=== PATIENT | female | born 1945 | race Caucasian/White ===

== ENCOUNTER 2017-05-07 07:56 | Inpatient (IN) | payer OTHER, MEDICARE ==
[~2017-05-07] VITALS: Ht 160 cm; Wt 84.4 kg
--- NOTE | ~2017-05-07 | HC ---
[facility] [place] [address] CONSULTATION Name: ABISAI KINGSTON Room #: 428-P ADM IN M.R.#: [id number] Admission: 05/07/17 Attend Phys: Adam Burns DO Discharge: Date of : 41 Report #: [id number] THIS REPORT FOR: //name// CC: Samy Burns TYPE OF REPORT: Pulmonary consultation. REFERRAL PHYSICIAN: Adam Burns D.O. REASON FOR REFERRAL: Hypoxia. HISTORY OF PRESENT ILLNESS: The patient is a 71-year-old white female who was brought to the Emergency Room complaining of left-sided chest pain and dyspnea. A pulmonary consultation was requested regarding hypoxia. The patient has history of Alzheimer's. She has atrial fibrillation. Although she is alert. She is somewhat incoherent. She states that she does not know why she was brought into the hospital. According to the ER, the patient became suddenly short of breath around 5:30 a.m. complaining of left-sided chest pain. She was found to be in AFib with rapid ventricular response. Her rhythm spontaneously converted to normal sinus rhythm while en route to the Emergency Room. The patient is on anticoagulation. Otherwise, she denies any dyspnea, chest pain, night sweats or chills. She states that she has smoked in the past but quit many years ago. She denies any history of lung disease. PAST MEDICAL HISTORY: Notable for the past history of tobacco use, CVA, hypertension, diabetes mellitus type 2, coronary artery disease, undergone multiple stent placements in the past, status post right renal artery stent, hyperlipidemia, history of cerebral artery aneurysm clipping, Alzheimer's, history of lumbar fracture with epidural hematoma and past history of right arm fracture in 2015. PAST SURGICAL HISTORY: Include open cholecystectomy, bladder suspension surgery, bilateral cataract surgery. ALLERGIES: To LATEX, reactions unspecified; IODINE, reactions unspecified; SULFA, reactions unknown; PENICILLIN causes hives and STEROIDS, reactions unspecified. FAMILY HISTORY: Remarkable for mother had cervical cancer. Multiple diabetes in the family. Father had coronary artery disease and diabetes. SOCIAL HISTORY: The patient is and has one child. She is retired from [employer] [employer] [facility] [employer] [facility] [place] [address] CONSULTATION Name: ABISAI KINGSTON Room #: 428-P [facility] IN [facility]#: [id number] Admission: 05/07/17 Attend Phys: Adam Burns DO Discharge: Date of : 43 Report #: [id number] the Green A. She has smoked in the past and quit in 2003. REVIEW OF SYSTEMS: As mentioned above. She is somewhat incoherent and states that it is 2016. Otherwise, a 10-point system review negative. PHYSICAL EXAMINATION: GENERAL: She is awake and alert, in no apparent distress. VITAL SIGNS: Temperature is 98.7 degrees Fahrenheit, pulse is 77, respiratory rate is 20, blood pressure is 154/75 mmHg and saturation is 98%. HEENT: Normocephalic and atraumatic. NECK: Supple, without lymphadenopathy or thyromegaly. CHEST: Breath sounds are fair due to poor effort. No obvious wheezes. Few scattered crackles in the bases. CARDIOVASCULAR: Normal S1 and S2. There is no murmur or gallop. There is no JVD. There is no carotid bruit. Pulses are 2+/4+ bilaterally. ABDOMEN: Soft and nontender. No organomegaly or masses felt. GENITOURINARY: Deferred. RECTAL: Deferred. EXTREMITIES: There is no edema, cyanosis or clubbing. LABORATORY DATA: D-dimer is normal at 0.47. Chest x-ray shows calcified granulomas seen in the right upper lobe, left lower lobe. Arterial blood gas on room air revealed pH 7.38, pCO2 of 43 and pO2 of 48. TSH is normal. EKG was unremarkable for any acute ischemic changes. Electrolytes are normal. Creatinine is normal. WBC 7600, hemoglobin is 11.4 and platelets are mildly reduced. Troponin is normal. IMPRESSION: 1. Acute onset of dyspnea, left-sided chest pain in this 71-year-old white female. She now has hypoxia with paO2 of 48 on room air. She is relatively asymptomatic. Etiology is unclear. With a history of Alzheimer's dementia, it is unclear if she has hypoventilation syndrome. Note that the pCO2 is mildly elevated at 43. Other considerations include a remote possibility of chronic obstructive lung disease with a past history of chronic obstructive pulmonary disease. Pulmonary embolus felt to be less likely as the patient is currently on anticoagulation, presumably for history of cerebrovascular accident. 2. History of cerebrovascular accident. 3. Coronary artery disease, status post multiple stents along with right renal artery stents. 4. Hypertension. 5. Diabetes mellitus type 2. 6. History of cerebral artery aneurysm clipping. 7. Alzheimer disease, likely early onset dementia. RECOMMENDATION: Agree with O2 for now to keep saturation 90%. We will recommend overnight oximetry study. Note, the patient also has been sedentary [facility] [address] [place] [address] CONSULTATION Name: ABISAI KINGSTON Room #: 428-P ADM IN M.R.#: [id number] Admission: 05/07/17 Attend Phys: Adam Burns, DO Discharge: Date of : 43 Report #: [id number] to realize the patient is already on anticoagulation but will be beneficial to rule out venothromboembolic disease. Recommend V/Q scan along with leg Doppler ultrasound. A bedside spirometry will be ordered. Eventually as an outpatient, PFT will be helpful. Thank you for this consultation. <ELECTRONICALLY SIGNED> By: Davonte Corral MD 05/09/17 1345 [id number] 0026 Davonte Corral MD /nt
--- NOTE | ~2017-05-07 | EKG ---
[address] [employer] [place] [address] ELECTROCARDIOGRAM REPORT Name: ABISAI KINGSTON Room #: 428-P ADM IN M.R.#: [id number] Admission: 05/07/17 Attend Phys: Adam Burns DO Discharge: Date of : 43 Report #: [id number] THIS REPORT FOR: //name// [facility] ED Test Date: 2017-05-07 Test Time: 08:04:20 Pat Name: ABISAI KINGSTON Department: Room: [facility] Gender: F Professor Of Violin: RIVER : 1945 Requested By: Rupali Parker Order Number: [id number] MD: Jeff Allan Measurements Intervals [place] Rate: 94 P: 51 NV: 136 QRS: 49 QRSD: 148 T: -16 QT: 374 QTc: 468 Interpretive Statements Sinus rhythm Right bundle branch block Baseline wander in lead(s) I Compared to ECG 06/02/2015 17:18:49 Lateral T wave abnormality is now present Electronically Signed On 05-08-2017 9:51:08 CHARGE WEIGHER by Jeff Allan [email or web address] <ELECTRONICALLY SIGNED> By: Jeff Allan MD, [facility] 05/08/17 0951 [phone] Jeff Allan MD, [facility] /EPI
--- NOTE | ~2017-05-07 | EKG ---
[address] [address] ELECTROCARDIOGRAM REPORT Name: ABISAI KINGSTON Room #: 428- ADM IN M.R.#: [id number] Admission: 05/07/17 Attend Phys: Adam Burns DO Discharge: Date of : 43 Report #: [id number] THIS REPORT FOR: //name// [facility] Test Date: 2017-05-10 Test Time: 06:22:23 Pat Name: ABISAI KINGSTON Department: Room: 428 Gender: F Tax Specialist: NASRA : 1945 Requested By: Stanislav Fenton Order Number: [id number] MD: Jeff Allan Measurements Intervals [place] Rate: 70 P: 41 IL: 147 QRS: 8 QRSD: 146 T: -15 QT: 438 QTc: 473 Interpretive Statements Sinus rhythm Right bundle branch block Compared to ECG 05/09/2017 02:58:55 Atrial fibrillation no longer present Electronically Signed On 05-10-2017 8:16:08 RAIL PROJECT ENGINEER by Jeff Allan [email or web address] <ELECTRONICALLY SIGNED> By: Jeff Allan MD, [facility] 05/10/1716 1 1 Jeff Allan MD, [facility] /EPI
--- NOTE | ~2017-05-07 | HC ---
[facility] [place] [address] CONSULTATION Name: ABISAI KINGSTON Room #: 428-P ADM IN M.R.#: [id number] Admission: 05/07/17 Attend Phys: Adam Burns DO Discharge: Date of : 43 Report #: [id number] THIS REPORT FOR: //name// CC: Samy Burns HISTORY OF PRESENT ILLNESS: The patient is a 71-year-old female known to myself. It looks like she has been in the hospital for a couple of days with hypoxemia and AFib, RVR. We are just consulted today. She has been fairly stable from my cardiac perspective and does have a history of paroxysmal AFib. She is on a multitude of home medications. She has moderate carotid disease from Dopplers done in our office. She is not completely clear historian tonight. She believes she came in with some shortness of breath, but does not remember a lot about that admission. States she still home with her . She converted to sinus rhythm and looks to be in sinus rhythm tonight. HOME MEDICATIONS: Lipitor 20, gabapentin, insulin, lidocaine, Trusopt, Lasix 40, Eliquis 5 b.i.d., potassium and lactobacillus. She had been on quinapril in the past. PAST MEDICAL HISTORY: Positive for drug-eluting stents to her LAD and RCA, right renal stent, hypertension, hypercholesterolemia, diabetes, moderate carotid disease, peripheral neuropathy, brain aneurysm clipping, bladder suspension and hysterectomy. Some progressive dementia and had suffered some trauma with rib and arm fractures in April of 2015. SOCIAL HISTORY: She is , prior smoker, some history of alcohol in the past, none currently. CURRENT MEDICATIONS: Here in the hospital are Lasix, potassium, latanoprost ophthalmologic, edoxaban 60 mg that is Savaysa for anticoagulation, amlodipine 10 and metoprolol IV was given once. PHYSICAL EXAMINATION: GENERAL: She appears to be mildly demented tonight, but she denies any chest pain. She is on 2 liters of oxygen. She is in sinus rhythm. VITAL SIGNS: Pulse in the 70s and blood pressure 140/84. HEENT: Eyes reveal xanthelasmas. Pharynx is clear. NECK: Shows preserved upstrokes without JVD. There is a faint left-sided bruit. LUNGS: Show prolonged expiratory phase. CARDIAC: Regular rate and rhythm. S1 and S2 distant. ABDOMEN: Soft. No HSM or abdominal bruit. EXTREMITIES: Reveal trace of edema. Distal pulses are intact. MUSCULOSKELETAL: Generalized arthritic changes. NEUROLOGICAL: Intact. No focal findings. I did not ambulate her. [facility] [address] [facility] [place] [address] CONSULTATION Name: ABISAI KINGSTON Room #: 428-P ADM IN M.R.#: [id number] Admission: 05/07/17 Attend Phys: Adam Burns DO Discharge: Date of : 43 Report #: [id number] ASSESSMENT: 1. Hypoxemia. 2. Paroxysmal atrial fibrillation. 3. Coronary artery disease with history of prior left anterior descending and right coronary artery stents, stable. 4. Wofys-hc-twaleor systolic failure. 5. Frailness. 6. Early dementia. 7. Diabetes. 8. Hypercholesterolemia. RECOMMENDATIONS AND PLAN: An echo was obtained. LV function is normal, so must be a component of diastolic dysfunction here, not acute systolic. I suspect mild valvular insufficiency and pulmonary hypertension with a PA pressure of 55. I would continue the diuretic. She appears to be hemodynamically stable. There is no rate controlling medications here. We will presumably add Toprol, looks like heart rate and blood pressure would handle this. We will initiate 25. We would continue with the Lasix. No BNP. We will check a BNP in the morning and it appears there was a V/Q scan and that was low probability. Chest x-ray 2 days ago showed no acute pulmonary process appear to be relatively stable from a hemodynamic perspective. Obviously, some rehab may be an order here and some strengthening. EKG in the morning. We will follow with you. ADDENDUM ASSESSMENT: Paroxysmal atrial fibrillation. LABORATORY DATA: Sodium 139, potassium 4.2, creatinine 1.1 and glucose 138. H and H 12.3 and 38.7, white count 8.5 and platelets 135. By: 51 39 Stanislav Fenton MD, FACC /nt
--- NOTE | ~2017-05-07 | 2DMMODE ---
[facility] [address] [place] [address] 2 D/M-MODE ECHOCARDIOGRAM Name: ABISAI KINGSTON Room #: 428-P ADM IN M.R.#: [id number] Admission: 05/07/17 Attend Phys: Adam Burns, Discharge: Date of : 43 Date of Service: 05/09/17 1206 Report #: [id number] THIS REPORT FOR: //name// APPROVED REPORT Study performed: 05/09/2017 11:27:17 EXAM: Comprehensive 2D, Doppler, and color-flow Echocardiogram Patient Location: Bedside Room #: 428 Status: routine BSA: 1.88 BP: 140/84 mmHg Other Information Study Quality: Technically Limited Technically limited study due to lung disease. Indications Diabetes CAD Chest Pain Hypertension/HDD Hx afib 2D Dimensions RVDd: 25.12 mm LVEF(%): 57.57 (>50%) IVSd: 11.36 (7-11mm) LVOT Diam: 18.48 (18-24mm) LVDd: 39.95 mm PWd: 12.12 (7-11mm) LVDs: 28.02 (25-40mm) Aortic Root: 30.56 mm IVC: 10.00 mm Nava's LVEF: 57.57 % Volumes Left Atrial Volume (Systole) Single Plane 4CH: 23.49 mL Single Plane 2CH: 50.70 mL LA ESV Index: 19.00 mL/m2 Aortic Valve AoV Peak Daniel.: 1.15 m/s AO Peak Gr.: 5.31 mmHg LVOT Max P.35 mmHg LVOT Max V: 1.04 m/s [facility] [address] [address] 2 D/M-MODE ECHOCARDIOGRAM Name: ABISAI KINGSTON Room #: 428-[facility] IN [facility]#: [id number] Admission: 05/07/17 Attend Phys: Adam Burns, Discharge: Date of : 43 Date of Service: 05/09/17 1206 Report #: [id number] Vmax: 2.43 cm2 Mitral Valve E/A Ratio: 0.7 MV Decel. Time: 263.00 ms MV E Max Daniel.: 0.87 m/s MV A Daniel.: 1.18 m/s MV PHT: 76.27 ms IVRT: 114.19 ms Pulmonary Vein P Vein S: 0.36 m/s P Vein A: 0.17 m/s P Vein D: 0.26 m/s P Vein A Dur.: 96.9 msec P Vein S/D Ratio: 1.38 Tricuspid Valve TR Peak Daniel.: 3.50 m/s RAP Estimate: 5.00 mmHg TR Peak Gr.: 49.13 mmHg PA Pressure: 55.00 mmHg Left Ventricle The left ventricle is normal size. There is normal left ventricular wall thickness. The left ventricular systolic function is normal. The left ventricular ejection fraction is within the normal range. LVEF is 60-65%. Mild diastolic dysfunction is present (impaired relaxation pattern). Right Ventricle The right ventricle is normal size. The right ventricular systolic function is normal. Atria Left atrium is mildly dilated. The right atrium size is normal. Aortic Valve The aortic valve is not well visualized, calcified Trace to mild aortic regurgitation. There is no aortic valvular stenosis. Mitral Valve Mild mitral annular calcification. There is no mitral valve regurgitation noted. No evidence of mitral valve stenosis. Tricuspid Valve The tricuspid valve is normal in structure. Mild tricuspid regurgitation. PAP is estimated at [address] [address] 2 D/M-MODE ECHOCARDIOGRAM Name: GENOVEVA KINGSTON Room #: 428-P [facility] IN M.R.#: [id number] Admission: 05/07/17 Attend Phys: Adam Burns, Discharge: Date of : 43 Date of Service: 05/09/17 1206 Report #: [id number] Pulmonic Valve Pulmonic valve is not well visualized. Great Vessels The aortic root is normal in size. Ascending aorta is not well visualized. IVC is normal in size and collapses >50% with inspiration. Pericardium There is no pericardial effusion. <Conclusion> The left ventricular systolic function is normal. LVEF is 60-65%. Hypokinesis involving the base of the inferior wall Mild diastolic dysfunction Left atrium is mildly dilated. The aortic valve is not well visualized, calcified. Mild aortic regurgitation, no stenosis. Mild mitral annular calcification. No mitral valve regurgitation Pulmonary artery pressure of 55mmHg No pericardial effusion <ELECTRONICALLY SIGNED> By: Jeff Allan MD, FACC 05/09/171205 05 05 Jeff Allan MD, FACC /INF
--- NOTE | ~2017-05-07 | EKG ---
[address] [address] ELECTROCARDIOGRAM REPORT Name: ABISAI KINGSTON Room #: 428-P ADM IN M.R.#: [id number] Admission: 05/07/17 Attend Phys: Adam Burns DO Discharge: Date of : 43 Report #: [id number] THIS REPORT FOR: //name// [facility] Test Date: 2017-05-09 Test Time: 02:58:55 Pat Name: ABISAI KINGSTON Department: Room: 428 P Gender: F Ground Systems Engineer: bassam : 1945 Requested By: Neris Aviles Order Number: [id number] MD: Jon Portillo Measurements Intervals [place] Rate: 149 P: IN: QRS: 72 QRSD: 133 T: -25 QT: 323 QTc: 509 Interpretive Statements Atrial fibrillation Right bundle branch block Compared to ECG 05/07/2017 08:04:20 Sinus rhythm no longer present Electronically Signed On 05-09-2017 7:37:14 HYDROELECTRIC MACHINERY MECHANIC by Jon Portillo [email or web address] <ELECTRONICALLY SIGNED> By: Jon Portillo MD 05/09/17 0737 7 Jon Portillo MD /JON
--- NOTE | ~2017-05-07 | PFR/MVV ---
[facility] [place] [address] PULMONARY FUNCTION MVV/REPORT Name: THEEABISAI Room #: 428-P [facility] IN [facility].#: [id number] Admission: 05/07/17 Attend Phys: Adam Burns DO Discharge: 05/11/17 Date of : 43 Report #: [id number] THIS REPORT FOR: //name// >> SPIROMETRY: (BTPS) Height: in cm Weight: lbs kg Exam Date: PRE-RX POST-RX PRED BEST %PRED BEST %PRED %CHG FVC LITERS . . . . . . FEV1 LITERS . . . . . . FEV1/FVC % . . . . . . GKL33-36% L/Sec . . . . . . PEF L/SEC . . . . . . FEF50/FIF50 UNITLESS . . . . . . MVV L/Min . . . f 1/Min . . . >> LUNG VOLUMES: (BTPS) PRE-RX POST-RX PRED AVG %PRED AVG %PRED %CHG VC Liters . . . . . . TLC Liters . . . . . . RV Liters . . . . . . RV/TLC % . . . . . . FRC PL Liters . . . . . . FRC N2 Liters . . . . . . ERV Liters . . . . . . IC Liters . . . . . . >> DIFFUSION: DLCO ml/Min/mmHg . . . . . . DL Julio ml/Min/mmHg . . . . . . DLCO/VA ml/Min/mmHg . . . . . . VA Liters . . . . . . COMMENTS: COMMENTS: >> RESISTANCE: [facility] [address] [place] [address] PULMONARY FUNCTION MVV/REPORT Name: ABISAI KINGSTON Room #: 428-P [facility] IN [place].#: [id number] Admission: 05/07/17 Attend Phys: Adam Burns DO Discharge: 05/11/17 Date of : 43 Report #: [id number] PRE-RX PRED AVG %PRED Raw Total cmH20/L/Sec . . . Raw Insp cmH20/L/Sec . . . Raw Exp cmH20/L/Sec . . . Raw cmH20/L/Sec . . . Gaw L/Sec/cmH20 . . . sRaw cmH20 Sec . . . sGaw l/cmH20 Sec . . . Vtq Liters . . . # = OUTSIDE 95% CONFIDENCE INTERVAL CALIBRATION: PRED: 3.00 ACTUAL: EXP 3.01 INSP 3.02 [facility]-05 N-1804-4 >> INTERPRETATION/IMPRESSION: CC: Samy Burns PRE-SPIROMETRY AND POST-SPIROMETRY. IMPRESSION: Pre-spirometry suggests low FVC with moderate obstruction. There is not a significant change post-bronchodilator, but there is a 7% to 8% change in FVC and FEV1 respectively. Clinical correlation recommended. <ELECTRONICALLY SIGNED> By: Donya Mosquera MD 05/14/17 1558 Donya Mosquera MD /nt
[~2017-05-07 07:56] MED LIST: ACCUPRIL40 MG PO; ACETAMINOPHEN-1 EAC1 PO; ACIDOPHILUS1 EAC2 PO; AMLODIPINE BESYL5 MG PO; ANTACID325 MG PO; ASPIRIN325; AZOPT OPHTH1 %/10 M1 OP; BISACODYL SUPP10 MG RECTAL; BYSTOLIC 5 MG5 M1 PO; BYSTOLIC20 MG; CALCIUM 500 +1 EAC5 PO; CALCIUM OYSTER500 MG; CENTRUM SILVER1 EAC1; CIPRO250 M1 PO; COLACE100 MG PO; CYCLOBENZAPRINE5 MG PO; ELIQUIS5 MG PO; FENOFIBRATE160 MG PO; FISHOIL; FOLIC ACID 40400 MCG; HUMULINR100; HYDROCODONE-AP1 EAC6 PO; KLOR-CON 1010 MEQ PO; LASIX 40 MG TAB40 M2 PO; LIDODERM 5%1 PATC1 TOP; LIDODERM 5%1 PATC1 TRANSDERM; LIPITOR 20 MG T20 M1 PO; MILK OF MA2400 MG/10 PO; MIRALAX17 GM PO; MOBIC7.5 MG PO; NAPROSYN500 MG PO; NEURONTIN 300300 M1 PO; NEURONTIN600 MG; NOVOLIN N100 UNIT/3; NOVOLOG100 UNIT/1; NYSTATIN15 G1 TOP; PERCOCET 7.5-31 EACH PO; PERCOCET PO; PREDNISONE 10 M10 MG; PREDNISONE 20 M20 MG PO; PRILOSEC20 MG PO; QUINU10 PD PO; REMERON15 MG PO; SENNA8.6 MG PO; SIMVASTATIN40 MG PO; SIMVASTATIN80 MG; SODIUM BICARBO650 M3 PO; TIMOLOL GL0.5 %/5 M1 OPHTHALMIC; TOPROL XL25 MG; TRAVATAN Z2.5 ML OPHTHALMIC; TRUSOPT OCUMETE10 ML OPHTHALMIC; TYLENOL325 MG PO; VITAMINC500 PO; VOLTAREN GEL 1100 G2 TOP; XALATAN2.5 ML OPHTHALMIC; ZANTAC 150MG T150 MG PO
[2017-05-07 07:57] VITALS: BP 160/64
[2017-05-07 08:33] LABS: HEMATOCRIT 35.8 % (37.0-47.0); HEMOGLOBIN 11.4 gm/dL (12.0-15.0); MCH 28.3 pg (26.0-34.0); MCHC 31.8 g/dL (28.0-37.0); MCV 88.7 fL (80.0-100.0); PLATELET COUNT 117 thou/uL (150-400); RBC 4.03 mil/uL (4.20-5.00); RDW 16.1 % (10.5-14.5); WBC 7.6 thou/uL (4.0-11.0)
[2017-05-07 08:40] LABS: MANUAL DIFF YES
[2017-05-07 08:45] LABS: ANION GAP 10 mmol/L (7-16); BUN 16 mg/dL (7-18); CALCIUM 10.1 mg/dL (8.5-10.1); CHLORIDE 100 mmol/L (98-107); CO2 26 mmol/L (21-32); CREATININE 0.9 mg/dL (0.6-1.0); GLUCOSE 181 mg/dL (74-106); POTASSIUM 4.4 mmol/L (3.5-5.1); SODIUM 136 mmol/L (136-145)
[2017-05-07 08:54] LABS: TROPONIN-I < 0.04 ng/mL (<0.06)
[2017-05-07 09:05] LABS: ABSOLUTE NEUTROPHILS 4.2 thou/uL (1.4-8.2); ANISOCYTOSIS 1+; TOTAL CELL COUNT 100
[2017-05-07 11:45] LABS: ABG SAMPLE TYPE ARTERIAL; BE(vivo) 0.3 mmol/L (-2 to +3); HCO3 25.5 mmol/L (22.0-26.0); LACTATE 1.85 mmol/L (0.5-2.0); O2(CT) 13.8 mL/dL (15.0-23.0); O2Hb 83.4 % (92.0-98.0); PCO2 43.4 mmHg (35.0-45.0); PO2 48.9 mmHg (80.0-100.0); STICK SITE R.BRACHIAL; pH 7.387 (7.360-7.450); tCO2 26.8 mmol/L (24.0-30.0)
[2017-05-07 12:35] VITALS: BP 140/67
[2017-05-07 13:36] VITALS: BP 119/67
[2017-05-07 21:00] VITALS: BP 154/77
[2017-05-08 05:30] VITALS: BP 162/79
[2017-05-08 06:01] LABS: HEMATOCRIT 36.2 % (37.0-47.0); HEMOGLOBIN 11.4 gm/dL (12.0-15.0); MCHC 31.4 g/dL (28.0-37.0); MCV 89.2 fL (80.0-100.0); PLATELET COUNT 118 thou/uL (150-400); RBC 4.06 mil/uL (4.20-5.00); RDW 16.3 % (10.5-14.5); WBC 6.2 thou/uL (4.0-11.0)
[2017-05-08 06:14] LABS: MANUAL DIFF YES
[2017-05-08 06:38] LABS: TSH 0.831 uIU/mL (0.358-3.740)
[2017-05-08 07:50] VITALS: BP 154/75
[2017-05-08 10:46] LABS: ANISOCYTOSIS 1+; ATYPICAL LYMPHS 3 %; TOTAL CELL COUNT 100
[2017-05-08 11:09] LABS: CALCIUM 9.6 mg/dL (8.5-10.1); CREATININE 0.8 mg/dL (0.6-1.0); MAGNESIUM 1.7 mg/dL (1.8-2.4); POTASSIUM 4.1 mmol/L (3.5-5.1)
[2017-05-08 15:05] VITALS: BP 156/78
[2017-05-08 19:45] VITALS: BP 140/67
[2017-05-09 04:23] LABS: HEMATOCRIT 38.7 % (37.0-47.0); HEMOGLOBIN 12.3 gm/dL (12.0-15.0); MCH 28.5 pg (26.0-34.0); MCHC 31.7 g/dL (28.0-37.0); MCV 89.8 fL (80.0-100.0); PLATELET COUNT 135 thou/uL (150-400); RBC 4.31 mil/uL (4.20-5.00); RDW 16.1 % (10.5-14.5); WBC 8.5 thou/uL (4.0-11.0)
[2017-05-09 04:34] LABS: CALCIUM 9.4 mg/dL (8.5-10.1); CREATININE 1.1 mg/dL (0.6-1.0); MAGNESIUM 1.6 mg/dL (1.8-2.4); POTASSIUM 4.2 mmol/L (3.5-5.1)
[2017-05-09 04:38] LABS: MANUAL DIFF YES
[2017-05-09 05:43] LABS: ANISOCYTOSIS SLIGHT; LARGE PLATELETS RARE; TOTAL CELL COUNT 100
[2017-05-09 09:41] VITALS: BP 140/84
[2017-05-09] MEDS ORDERED: AMLODIPINE BESY10 MG PO (14:56)
[2017-05-09 16:47] VITALS: BP 151/68
[2017-05-09 20:30] VITALS: BP 137/58
[2017-05-10 03:19] VITALS: BP 153/62
[2017-05-10 07:28] VITALS: BP 147/61
[2017-05-10 16:00] VITALS: BP 116/59
[2017-05-10 17:29] LABS: URINE BILIRUBIN NEGATIVE (Negative); URINE BLOOD NEGATIVE (Negative); URINE COLOR YELLOW; URINE GLUCOSE-RANDOM* NEGATIVE (Negative); URINE KETONES NEGATIVE (Negative); URINE PROTEIN (DIPSTICK) NEGATIVE (Negative); URINE SPECIFIC GRAVITY <= 1.005 (1.003-1.035); URINE UROBILINOGEN 0.2 E.U./dl (0.2-1.0)
[2017-05-10 17:38] LABS: URINE LEUKOCYTES-REFLEX 1+ (Negative)
[2017-05-10 17:44] LABS: CASTS None Seen /LPF (None Seen); CRYSTALS None Seen /LPF (None Seen); SQUAMOUS None Seen /LPF (0-3); URINE RBC None Seen /HPF (0-2); URINE WBC-REFLEX 0-5 Rare /HPF (0-5)
[2017-05-10 20:00] VITALS: BP 129/60
[2017-05-11 00:13] VITALS: BP 142/56
[2017-05-11 05:07] VITALS: BP 141/63
[2017-05-11 05:08] LABS: GLYCOHEMOGLOBIN (HGB A1C) 7.2 % (4.8-5.6)
[2017-05-11 09:23] VITALS: BP 136/53
[2017-05-11] MEDS ORDERED: METOPROLOL SUCC25 M1 PO (10:02)
[2017-05-11 10:20] VITALS: BP 136/53
== END 2017-05-11 15:00 | disposition home health service (06) | DRG 291 ==
LOC: ER 07:56 → 4E 11:55 → EROBS 11:55 → 4E 13:22 → ENTRNSPT 05-11 14:48 → EDTRNSPTSTS 05-11 14:51 → 4E 05-11 15:00
PROVIDERS: Emergency Medicine; Hospitalist; Internal Medicine Geriatric Medicine; Registered Nurse
DX: I50.23 Acute on chronic systolic (congestive) heart failure (principal); J96.00 Acute respiratory failure, unspecified whether with hypoxia or hypercapnia; G30.0 Alzheimer's disease with early onset; E53.8 Deficiency of other specified B group vitamins; I11.0 Hypertensive heart disease with heart failure; I48.0 Paroxysmal atrial fibrillation; F02.80 Dementia in other diseases classified elsewhere, unspecified severity, without behavioral disturbance, psychotic disturbance, mood disturbance, and anxiety; I25.10 Atherosclerotic heart disease of native coronary artery without angina pectoris; E78.5 Hyperlipidemia, unspecified; E11.42 Type 2 diabetes mellitus with diabetic polyneuropathy; Z87.891 Personal history of nicotine dependence; Z90.710 Acquired absence of both cervix and uterus; Z87.81 Personal history of (healed) traumatic fracture; Z86.73 Personal history of transient ischemic attack (TIA), and cerebral infarction without residual deficits; Z98.42 Cataract extraction status, left eye; Z98.41 Cataract extraction status, right eye; Z95.5 Presence of coronary angioplasty implant and graft; Z95.820 Peripheral vascular angioplasty status with implants and grafts; Z88.0 Allergy status to penicillin; Z88.2 Allergy status to sulfonamides; Z88.8 Allergy status to other drugs, medicaments and biological substances; Z91.041 Radiographic dye allergy status; Z91.040 Latex allergy status; Z79.01 Long term (current) use of anticoagulants; Z79.4 Long term (current) use of insulin; Z79.899 Other long term (current) drug therapy
CPT/HCPCS: 10183

== ENCOUNTER 2017-11-24 01:05 | Inpatient (IN) | payer OTHER, MEDICARE ==
[~2017-11-24] VITALS: Ht 172.7 cm; Wt 86.8 kg
[2017-11-24] VITALS (53 sets, daily range): BP systolic 56–144; BP diastolic 42–125
--- NOTE | ~2017-11-24 | 2DMMODE ---
[facility] [address] [place] [address] 2 D/M-MODE ECHOCARDIOGRAM Name: ABISAI KINGSTON Room #: 243-P [facility] IN .R.#: [id number] Admission: 11/24/17 Attend Phys: Hira Mujica, Discharge: Date of : 41 Date of Service: 11/24/17 [facility] Report #: [id number] THIS REPORT FOR: //name// APPROVED REPORT Study performed: 11/24/2017 09:22:02 EXAM: Comprehensive 2D, Doppler, and color-flow Echocardiogram Patient Location: Bedside Room #: 351 Status: routine BSA: 2.03 HR: 53 bpm BP: 128/75 mmHg Rhythm: NSR Other Information Study Quality: Adequate/no patient cooperation. Indications Increased short of breath, pulmonary edema. Hx: CAD, stent, COPD, Afib 2D Dimensions RVDd: 37.43 mm LVEF(%): 64.21 (>50%) IVSd: 10.80 (7-11mm) LVOT Diam: 19.70 (18-24mm) LVDd: 48.00 mm PWd: 7.51 (7-11mm) LVDs: 31.19 (25-40mm) Aortic Root: 31.19 mm Nava's LVEF: 64.21 % Volumes Left Atrial Volume (Systole) Single Plane 4CH: 58.42 mL Single Plane 2CH: 93.16 mL LA ESV Index: 39.00 mL/m2 Aortic Valve AoV Peak Daniel.: 1.45 m/s AO Peak Gr.: 8.45 mmHg LVOT Max P.16 mmHg LVOT Max V: 0.89 m/s OZ Vmax: 1.86 cm2 Mitral Valve [facility] [address] [address] 2 D/M-MODE [facility]OCARDIOGRAM [facility]: [facility] #: [address] [place] [address] IN ..#: [id number] Admission: 11/24/17 Attend Phys: Hira Mujica, Discharge: Date of : 41 Date of Service: 11/24/17 [facility] Report #: [id number] E/A Ratio: 2.8 MV Decel. Time: 221.04 ms MV E Max Daniel.: 1.31 m/s MV A Daniel.: 0.47 m/s MV PHT: 64.10 ms Pulmonary Valve PV Peak Daniel.: 0.96 m/s PV Peak Gr.: 3.66 mmHg Pulmonary Vein P Vein S: 0.41 m/s P Vein A: 0.22 m/s P Vein D: 0.77 m/s P Vein A Dur.: 133.8 msec P Vein S/D Ratio: 0.53 Tricuspid Valve TR Peak Daniel.: 3.61 m/s RAP Estimate: 10.00 mmHg TR Peak Gr.: 52.00 mmHg PA Pressure: 62.00 mmHg Left Ventricle The left ventricle is normal size. There is normal left ventricular wall thickness. Left ventricular systolic function is normal. Hypokinesis involving base of inferior wall. LVEF is 60%. Moderate diastolic dysfunction is present (pseudonormal filling). Right Ventricle The right ventricle is normal size. The right ventricular systolic function is normal. Atria Left atrium is mildly dilated. Right atrium is at the upper limits of normal. Aortic Valve Aortic valve is moderately calcified. Mild aortic regurgitation. There is no aortic valvular stenosis. Mitral Valve Moderate mitral annular calcification; mild leaflet thickening. Mild mitral regurgitation. No evidence of mitral valve stenosis. Tricuspid Valve The tricuspid valve is normal in structure. Mild tricuspid regurgitation. Estimated PAP 60-65mmHg. [address] [address] 2 D/M-MODE ECHOCARDIOGRAM Name: ABISAI KINGSTON Room #: 243-P [facility] IN [facility]#: [id number] Admission: 11/24/17 Attend Phys: Hira Mujica, Discharge: Date of : 41 Date of Service: 11/24/17 [facility] Report #: [id number] Pulmonic Valve The pulmonary valve is normal in structure. Trace pulmonic regurgitation. Great Vessels The aortic root is normal in size. Ascending aorta is not well visualized. IVC is dilated and collapses <50% with inspiration. Pericardium There is no pericardial effusion. Right pleural effusion noted. <Conclusion> Left ventricular systolic function is normal. Hypokinesis involving base of inferior wall. LVEF is 60%. Moderate diastolic dysfunction Both atria are dilated. Aortic valve is moderately calcified. Mild aortic regurgitation, no stenosis. Moderate mitral annular calcification; mild leaflet thickening. Mild mitral regurgitation. Mild tricuspid regurgitation. Estimated pulmonary artery pressure of 60-65mmHg. There is no pericardial effusion. Similar to 04/2017 <ELECTRONICALLY SIGNED> By: Jeff Allan MD, FACC 11/24/17 1037 1037 1037 Jeff Allan MD, FACC /INF
--- NOTE | ~2017-11-24 | HC ---
[facility] [place] [address] CONSULTATION Name: ABISAI KINGSTON Room #: 449-I ADM IN M.R.#: [id number] Admission: 11/24/17 Attend Phys: Hira Mujica MD Discharge: Date of : 41 Report #: [id number] THIS REPORT FOR: //name// CC: Stanislav Mujica MD REQUESTING PHYSICIAN: Dr. Mujica. CHIEF COMPLAINT: Sbcwk-di-ggognnh combined respiratory failure. HISTORY OF PRESENT ILLNESS: The patient is a 72-year-old female who had had multiple admissions over the last year, per her 's report, for different complexities. The patient has been admitted to [place] on 11/24/2017 at which time she had been found to have severe anemia to a hemoglobin of 5, suspected to have GI bleed, but not a good candidate for EGD or colonoscopy secondary to respiratory failure. The patient has subsequently had a treatment for this including the possibility of pulmonary edema related to this. She has had significant improvement in her lower extremity edema since admission, but has subsequently developed delirium. She is requiring significant oxygen via nasal cannula as she is currently a DNR status. The patient's has been concerned about her progressive dementia of Alzheimer's type. She has had severe progression over the last 3 years and over the last 3 months, especially the patient has at times been very aggressive with her caregiver. He is at this point very concerned about her quality of life and is concerned that further treatment may although increase her life expectancy, decrease her quality in long-term. He is interested in palliative care as an option going forward. PAST MEDICAL HISTORY: Hypertension; moderate diastolic CHF; CAD; type 2 diabetes; paroxysmal atrial fibrillation; anemia; history of cerebral aneurysm, status post clipping; history of vertebral fractures, multiple, approximately years ago had 5 vertebral fractures and then 2 more approximately 2-1/2 years ago; Alzheimer's dementia; peripheral neuropathy secondary to diabetes. SOCIAL HISTORY: Lives at home with her , has 1 daughter. The patient had had significant decline in her ADLs over the last year, was walking with a walker; however, prior to this refused to continue to do therapy approximately 1 year ago according to . PAST SURGICAL HISTORY: Aneurysm clip as previously noted, renal stent. FAMILY HISTORY: Noncontributory. REVIEW OF SYSTEMS: Difficult to obtain at this time completely, although she is more alert than she has been in the last few days. The patient is able to report to me that she does have lower extremity pain. She denies any chest [address] [address] CONSULTATION Name: ABISAI KINGSTON Room #: 449-I ADM IN M.R.#: [id number] Admission: 11/24/17 Attend Phys: Hira Mujica MD Discharge: Date of : 41 Report #: [id number] pain, denies out of the ordinary shortness of breath for her, although she is obviously dyspneic at certain times. The patient denies any abdominal pain, nausea. She is interested in having p.o. intake. PHYSICAL EXAMINATION: VITAL SIGNS: Temperature 36.8, pulse 87, respirations 18, blood pressure 136/98, 94% on nasal cannula. GENERAL: The patient is more alert. Her attention level is poor. She is in no acute distress. HEENT: Extraocular muscles appear to be intact. No scleral icterus seen. CARDIOVASCULAR: Regular rate and rhythm without murmur. PULMONARY: Diffuse rales noted, only able to listen to upper lobes. ABDOMEN: Soft, nontender to palpation, x 4, positive bowel sounds noted in all 4 quadrants. EXTREMITIES: There is edema in upper extremities bilaterally, but none in lower extremities. LABORATORY DATA: These included most recently O2 48 this morning, CO2 45. She did have a white blood cell count of 20.1. Hemoglobin 8.0, and 5.0 on admit. Lactate 2.4. ASSESSMENT AND PLAN: 1. Gwdvw-je-mhykbyw combined respiratory failure and at this time, the patient's and next of kin is interested in palliative care options and he would like to wean oxygen down. He is of the impression that her quality of life is suffering overall. He would like to see how she does on getting back to her baseline. He does understand that she may have improvement with continued treatment, but he is concerned that her improvement back to baseline may be negligible and that she may have continued therapy need afterwards and he does not feel that she wants to go back to a long-term care for any kind of rehabilitation at this time. He feels that he will be unable to care for her otherwise and that she would not be interested in this. He is interested in pursuing anything that involves comfort at this time, although he would like to continue IV fluids for the next day until we assess how she is going to do overnight. I did discuss the possibility of weaning down 2 liters every 30 minutes or so until we reach a comfort level and then administering medications to assist. We will continue with fentanyl for the time being. Given her delirium, we will hold off on benzodiazepines, but they will be an option for anxiety in the future. We will readdress with patient and family tomorrow. I did discuss this for approximately one hour on voluntary discussion of advanced directives today, did confirm DNR status and willingness to continue that at this time. 2. Delirium. I do believe that the patient has been , although she does have some improvement. She does have preexisting dementia, which is contributing to her overall condition. We did discuss this extensively today and patient's is wishing to pursue a comfort care option at this time. [facility] [address] [place] [address] CONSULTATION Name: ABISAI KINGSTON Room #: 449-I ADM IN [facility]#: [id number] Admission: 11/24/17 Attend Phys: Hira Mujica MD Discharge: Date of : 41 Report #: [id number] 3. Dementia, moderate to severe at this time with agitation. Again, as above. 4. Possible pneumonia. I appreciate pulmonary recs. I have not discontinued any antibiotics or breathing treatments at this time, although she has had much difficulty with breathing treatments most recently in tolerating them. She has also had difficulty tolerating nasal cannula. Again, we will wean this at this time and see how patient does. We will readdress with family tomorrow. We will continue to follow along with this patient. Thank you very much for the consult. <ELECTRONICALLY SIGNED> By: Liam Barnard DO 11/29/17 [id number] Liam Barnard DO /santos
--- NOTE | ~2017-11-24 | EKG ---
[address] [address] ELECTROCARDIOGRAM REPORT Name: ABISAI KINGSTON Room #: 351-P ADM IN M.R.#: [id number] Admission: 11/24/17 Attend Phys: Hira Mujica MD Discharge: Date of : 41 Report #: [id number] THIS REPORT FOR: //name// [facility] ED Test Date: 2017-11-24 Test Time: 01:24:51 Pat Name: ABISAI KINGSTON Department: Room: Gender: F Program Checker: thesingj : 1945 Requested By: Jaki Alcantara Order Number: [id number] MD: Jeff Allan Measurements Intervals Harleigh Rate: 59 P: 61 DC: 145 QRS: 54 QRSD: 166 T: -21 QT: 485 QTc: 481 Interpretive Statements Sinus bradycardia Right bundle branch block Borderline ST depression, lateral leads Compared to ECG 05/10/2017 06:22:23 ST (T wave) deviation now present Electronically Signed On 11-24-2017 8:39:05 CDT by Jeff Allan [email or web address] <ELECTRONICALLY SIGNED> By: Jeff Allan MD, [facility] 11/24/17 0839 [id number] [id number] Jeff Allan MD, [facility] /EPI
--- NOTE | ~2017-11-24 | HC ---
[facility] [place] [address] CONSULTATION Name: ABISAI KINGSTON Room #: 243-P ADM IN M.R.#: [id number] Admission: 11/24/17 Attend Phys: Hira Mujica MD Discharge: Date of : 41 Report #: [id number] THIS REPORT FOR: //name// CC: Stanislav Jossy Samy Mujica DATE OF SERVICE: 11/24/2017 PULMONARY CONSULTATION REFERRING PHYSICIAN: Hira Mujica MD PRIMARY CARE PHYSICIAN: Samy Khanna DO REASON FOR REFERRAL: Acute on chronic respiratory failure. HISTORY OF PRESENT ILLNESS: The patient is a 72-year-old white female who presented to the Emergency Room with pain below her knees. She was found to be anemic. Her hemoglobin was 5. She was admitted to telemetry from the Emergency Room. Overnight, she became more hypoxic. A pulmonary consultation was requested. She is currently on noninvasive positive pressure ventilation. She is intermittently coherent. She is tolerating the BiPAP at this time. History is limited given respiratory distress. The patient is normally on 6 liters of O2 at home. She has COPD, which is moderate with an FEV1 of 1.1 liters, 55% predicted. Otherwise, as mentioned above, history is somewhat limited as the patient is currently on BiPAP and also somewhat confused. PAST MEDICAL HISTORY: Notable for dementia, cerebral aneurysm, CVA, COPD, hypertension, atrial fibrillation, on Savaysa, peripheral artery disease with a prior right renal artery stent placement, Alzheimer disease. PAST SURGICAL HISTORY: Notable for open cholecystectomy, repair of the right arm fracture, bladder suspension surgery, bilateral cataract surgery. ALLERGIES: LATEX, WHICH CAUSES SEVERE LOCAL REACTION; SULFA, REACTION NOT SPECIFIED, PENICILLIN CAUSES HIVES. HOME MEDICATIONS: Include sodium bicarbonate, Trusopt, Xalatan eyedrops, insulin supplements, amlodipine, Lasix, Savaysa 60 mg p.o. b.i.d., Aricept, Glucophage, Neurontin, vitamin C, Lipitor, Klor-Con. [facility] [address] [place] [address] CONSULTATION Name: ABISAI KINGSTON Room #: [facility].#: [id number] Admission: 11/24/17 Attend Phys: Hira Mujica MD Discharge: Date of : 41 Report #: [id number] FAMILY HISTORY: Noncontributory. SOCIAL HISTORY: The patient has smoked, but quit several years ago. She denies any alcohol use. REVIEW OF SYSTEMS: As mentioned above, otherwise is limited. PHYSICAL EXAMINATION: GENERAL: She is awake, in no distress, tolerating BiPAP. VITAL SIGNS: Temperature is 97 degrees Fahrenheit, pulse is 60, respiratory rate is 24, blood pressure is 120/50 mmHg, saturation 91%. HEENT: Normocephalic, atraumatic. NECK: Supple, without lymphadenopathy or thyromegaly. CHEST: Breath sounds are fair anteriorly without any obvious rales or wheezes. CARDIOVASCULAR: Normal S1, S2. No murmurs or gallop. There is no JVD. There is no carotid bruit. Pulses are 2+/4+ bilaterally. ABDOMEN: Soft, nontender, no organomegaly or masses felt. GENITOURINARY: Deferred. RECTAL: Deferred. EXTREMITIES: There is no edema, cyanosis or clubbing. LABORATORY DATA: Portable chest x-ray on admission revealed mild bilateral patchy interstitial infiltrates. Right diaphragm is mildly elevated. There is a calcified granuloma previously noted in the right upper lobe. Sodium 122, potassium 4.7, chloride 89, CO2 of 28, BUN is 19, creatinine is 1.1. Hemoglobin on admission was 5.0, currently is 8.2. Arterial blood gas revealed pH 7.25, pCO2 of 54, pO2 of 60 on FiO2 of 100%. WBC 6900. IMPRESSION: 1. Profound anemia, source is not obvious at this moment, without obvious bleeding. She is on anticoagulation. This has been on hold, though this does not have a reversal agent at present. Hemoglobin post transfusion is 8. 2. Acute on chronic hypercapnic hypoxic respiratory failure due to above. Since transfer to the ICU, the patient now is hypotensive. Suspect this may be related to transfusion related reaction, though cannot rule out other causes such as early sepsis. Mild infiltrates were noted in the chest x-ray suggesting the patient could have early pneumonia. 3. Hyponatremia, severe. The patient has a history of hyponatremia, sodium being 115 as of April 2015. 4. Chronic obstructive pulmonary disease, moderate impairment with exacerbation. 5. Atrial fibrillation, chronic, on anticoagulation, Savaysa has been on hold. 6. Possible gastrointestinal bleed. Workup currently in process. 7. History of cerebrovascular accident. 8. Dementia. [facility] [address] [place] [address] CONSULTATION Name: ABISAI KINGSTON Room #: 243-P ADM IN M.R.#: [id number] Admission: 11/24/17 Attend Phys: Hira Mujica MD Discharge: Date of : 41 Report #: [id number] 9. Coronary artery disease with past stent. 10. Past history of cerebral aneurysm clipping. 11. Diabetes. 12. Hypertension. RECOMMENDATIONS: We will continue noninvasive positive pressure ventilation, wean O2 for saturation 90%. The patient may benefit from broad spectrum antibiotics, await the results of the cultures. If febrile or worsening hypothermia and hypotension, would consider empiric antibiotics. Deep venous thrombosis and gastrointestinal prophylaxis has been addressed. Thank you for this consultation. <ELECTRONICALLY SIGNED> By: Davonte Corral MD 11/25/17 1226 1533 [id number] Davonte Corral MD /nt
[~2017-11-24 01:05] MED LIST changes: +AMLODIPINE BESY10 MG PO; +METOPROLOL SUCC25 M1 PO
[2017-11-24] MEDS ORDERED: SAVAYSA60 MG PO (01:30)
[2017-11-24] MEDS ORDERED: ARICEPT 5 MG TAB5 MG PO (01:32)
[2017-11-24] MEDS ORDERED: METFORMIN HCL500 MG PO (01:33)
[2017-11-24 01:34] LABS: MCH 27.6 pg (26.0-34.0); MCHC 32.2 g/dL (28.0-37.0); MCV 85.8 fL (80.0-100.0); PLATELET COUNT 178 thou/uL (150-400); RBC 1.81 mil/uL (4.20-5.00); WBC 6.9 thou/uL (4.0-11.0)
[2017-11-24] MEDS ORDERED: MAGOX 400400 MG PO (01:35)
[2017-11-24 01:42] LABS: ANION GAP 5 mmol/L (7-16); BUN 19 mg/dL (7-18); CALCIUM 9.1 mg/dL (8.5-10.1); CHLORIDE 89 mmol/L (98-107); CO2 28 mmol/L (21-32); CREATININE 1.1 mg/dL (0.6-1.0); GLUCOSE 146 mg/dL (74-106); POTASSIUM 4.7 mmol/L (3.5-5.1); SODIUM 122 mmol/L (136-145)
[2017-11-24 01:52] LABS: TROPONIN-I < 0.04 ng/mL (<0.06)
[2017-11-24 01:58] LABS: HEMATOCRIT 15.5 % (37.0-47.0)
[2017-11-24 02:50] LABS: ABSOLUTE NEUTROPHILS 4.4 thou/uL (1.4-8.2); HYPOCHROMASIA 3+; POLYCHROMASIA 1+
[2017-11-24 02:52] LABS: LARGE PLATELETS FEW
[2017-11-24 04:18] LABS: ABSOLUTE RETIC COUNT 0.0896 10^6/uL; OBSERVED RETIC COUNT 4.88 % (0.6-2.6)
[2017-11-24 04:28] LABS: % SATURATION 4 % (20-39); IRON 15 ug/dL (50-170); TIBC 392 ug/dL (250-450)
[2017-11-24 04:56] LABS: FOLIC ACID 9.3 ng/mL (8.6-58.9)
[2017-11-24 09:10] LABS: BE(vivo) -3.7 mmol/L (-2 to +3); HCO3 23.5 mmol/L (22.0-26.0); PCO2 54.4 mmHg (35.0-45.0); PO2 68.6 mmHg (80.0-100.0); sO2 90.6 % (92.0-98.0)
[2017-11-24 09:26] LABS: HEMATOCRIT 23.5 % (37.0-47.0)
[2017-11-24 09:28] LABS: HEMOGLOBIN 7.7 gm/dL (12.0-15.0)
[2017-11-24 09:40] LABS: pH 7.254 (7.360-7.450)
[2017-11-24 11:48] LABS: HEMATOCRIT 24.7 % (37.0-47.0); HEMOGLOBIN 8.2 gm/dL (12.0-15.0)
[2017-11-24 12:17] LABS: BE(vivo) 1.4 mmol/L (-2 to +3); HCO3 27.7 mmol/L (22.0-26.0); PCO2 52.9 mmHg (35.0-45.0); PO2 77.8 mmHg (80.0-100.0); pH 7.337 (7.360-7.450); sO2 94.6 % (92.0-98.0)
[2017-11-24] MEDS ORDERED: VENTOLIN HFA 1818 GM INH (14:17)
[2017-11-24 18:35] LABS: HEMOGLOBIN 8.2 gm/dL (12.0-15.0)
[2017-11-25] VITALS (24 sets, daily range): BP systolic 103–159; BP diastolic 33–88
[2017-11-25 03:57] LABS: HEMATOCRIT 21.4 % (37.0-47.0); MCH 27.8 pg (26.0-34.0); MCHC 32.9 g/dL (28.0-37.0); MCV 84.5 fL (80.0-100.0); RBC 2.53 mil/uL (4.20-5.00); RDW 15.2 % (10.5-14.5); WBC 8.1 thou/uL (4.0-11.0)
[2017-11-25 04:07] LABS: CREATININE 1.2 mg/dL (0.6-1.0); POTASSIUM 4.9 mmol/L (3.5-5.1)
[2017-11-25 06:49] LABS: HEMOGLOBIN 8.7 gm/dL (12.0-15.0)
[2017-11-25 07:53] LABS: INR 1.3; PROTIME 13.1 Seconds (9.3-11.4)
[2017-11-25 16:24] LABS: URINE BILIRUBIN NEGATIVE (Negative); URINE BLOOD NEGATIVE (Negative); URINE CLARITY CLEAR; URINE COLOR YELLOW; URINE GLUCOSE-RANDOM* NEGATIVE (Negative); URINE KETONES NEGATIVE (Negative); URINE LEUKOCYTES-REFLEX NEGATIVE (Negative); URINE NITRITE-REFLEX NEGATIVE (Negative); URINE PROTEIN (DIPSTICK) NEGATIVE (Negative); URINE SPECIFIC GRAVITY 1.015 (1.005-1.035); URINE UROBILINOGEN 0.2 E.U./dl (0.2-1.0)
[2017-11-26] VITALS (44 sets, daily range): BP systolic 114–157; BP diastolic 39–84
[2017-11-26 05:04] LABS: MAGNESIUM 1.8 mg/dL (1.8-2.4); PHOSPHORUS 2.7 mg/dL (2.5-4.9)
[2017-11-26 05:05] LABS: ALBUMIN 2.6 g/dL (3.4-5.0); CALCIUM 8.6 mg/dL (8.5-10.1); CREATININE 1.2 mg/dL (0.6-1.0); POTASSIUM 4.1 mmol/L (3.5-5.1); TOTAL BILIRUBIN 0.5 mg/dL (<0.1-1.0); TOTAL PROTEIN 6.1 g/dL (6.4-8.2)
[2017-11-26 05:34] LABS: BE(vivo) 6.3 mmol/L (-2 to +3); HCO3 30.8 mmol/L (22.0-26.0); PCO2 44.4 mmHg (35.0-45.0); PO2 59.7 mmHg (80.0-100.0); pH 7.459 (7.360-7.450)
[2017-11-26 06:22] LABS: HEMATOCRIT 23.3 % (37.0-47.0); HEMOGLOBIN 7.5 gm/dL (12.0-15.0); MCH 27.5 pg (26.0-34.0); MCHC 32.3 g/dL (28.0-37.0); MCV 85.3 fL (80.0-100.0); RBC 2.73 mil/uL (4.20-5.00); RDW 15.6 % (10.5-14.5); WBC 12.3 thou/uL (4.0-11.0)
[2017-11-27] VITALS (45 sets, daily range): BP systolic 113–158; BP diastolic 42–84
[2017-11-27 03:56] LABS: CALCIUM 9.4 mg/dL (8.5-10.1); CREATININE 1.1 mg/dL (0.6-1.0); MAGNESIUM 1.8 mg/dL (1.8-2.4); PHOSPHORUS 1.8 mg/dL (2.5-4.9); POTASSIUM 3.4 mmol/L (3.5-5.1)
[2017-11-27 10:27] LABS: HEMATOCRIT 24.9 % (37.0-47.0); MCHC 32.3 g/dL (28.0-37.0); MCV 86.8 fL (80.0-100.0); RBC 2.87 mil/uL (4.20-5.00); RDW 16.1 % (10.5-14.5); WBC 20.7 thou/uL (4.0-11.0)
[2017-11-27 17:05] LABS: URINE BILIRUBIN NEGATIVE (Negative); URINE BLOOD NEGATIVE (Negative); URINE CLARITY CLEAR; URINE COLOR YELLOW; URINE GLUCOSE-RANDOM* NEGATIVE (Negative); URINE KETONES NEGATIVE (Negative); URINE LEUKOCYTES-REFLEX NEGATIVE (Negative); URINE NITRITE-REFLEX NEGATIVE (Negative); URINE PROTEIN (DIPSTICK) NEGATIVE (Negative); URINE UROBILINOGEN 0.2 E.U./dl (0.2-1.0)
[2017-11-28] VITALS (26 sets, daily range): BP systolic 125–162; BP diastolic 46–98
[2017-11-28 03:20] LABS: HEMATOCRIT 24.8 % (37.0-47.0); MCH 28.1 pg (26.0-34.0); MCHC 32.1 g/dL (28.0-37.0); MCV 87.6 fL (80.0-100.0); PLATELET COUNT 183 thou/uL (150-400); RBC 2.83 mil/uL (4.20-5.00); RDW 16.1 % (10.5-14.5); WBC 20.1 thou/uL (4.0-11.0)
[2017-11-28 03:31] LABS: ALBUMIN 2.6 g/dL (3.4-5.0); CALCIUM 8.7 mg/dL (8.5-10.1); MAGNESIUM 1.9 mg/dL (1.8-2.4); PHOSPHORUS 2.5 mg/dL (2.5-4.9); POTASSIUM 3.3 mmol/L (3.5-5.1); TOTAL BILIRUBIN 0.4 mg/dL (<0.1-1.0); TOTAL PROTEIN 6.1 g/dL (6.4-8.2)
[2017-11-28 07:31] LABS: BE(vivo) 9.5 mmol/L (-2 to +3); HCO3 33.8 mmol/L (22.0-26.0); PCO2 45.1 mmHg (35.0-45.0); pH 7.492 (7.360-7.450); sO2 86.6 % (92.0-98.0)
[2017-11-28 08:31] LABS: ABSOLUTE NEUTROPHILS 17.5 thou/uL (1.4-8.2); PLATELET ESTIMATE NORMAL
[2017-11-29] VITALS (17 sets, daily range): BP systolic 100–161; BP diastolic 53–89
[2017-11-29 06:42] LABS: CALCIUM 8.9 mg/dL (8.5-10.1); PHOSPHORUS 3.3 mg/dL (2.5-4.9); POTASSIUM 4.3 mmol/L (3.5-5.1)
[2017-11-30 03:33] VITALS: BP 132/64
[2017-11-30 08:00] VITALS: BP 103/53
[2017-11-30 16:00] VITALS: BP 121/63
[2017-11-30 20:30] VITALS: BP 122/63
[2017-12-01 04:57] VITALS: BP 109/56
[2017-12-01 08:00] VITALS: BP 124/59
== END 2017-12-01 12:15 | disposition hospice, inpatient (51) | DRG 377 ==
LOC: ER 01:05 → 3W 03:04 → EROBS 03:04 → 3W 04:18 → ICU 10:15 → 4W 11-29 12:25
PROVIDERS: Emergency Medicine; Internal Medicine; Internal Medicine Cardiovascular Disease; Internal Medicine Pulmonary Disease; Nurse Practitioner Family
DX: K92.2 Gastrointestinal hemorrhage, unspecified (principal); J96.21 Acute and chronic respiratory failure with hypoxia; J96.22 Acute and chronic respiratory failure with hypercapnia; G92 Toxic encephalopathy; J18.9 Pneumonia, unspecified organism; D62 Acute posthemorrhagic anemia; E87.1 Hypo-osmolality and hyponatremia; I50.30 Unspecified diastolic (congestive) heart failure; J44.1 Chronic obstructive pulmonary disease with (acute) exacerbation; J98.11 Atelectasis; G30.9 Alzheimer's disease, unspecified; F02.80 Dementia in other diseases classified elsewhere, unspecified severity, without behavioral disturbance, psychotic disturbance, mood disturbance, and anxiety; I48.2 Chronic atrial fibrillation; I25.10 Atherosclerotic heart disease of native coronary artery without angina pectoris; I48.0 Paroxysmal atrial fibrillation; E11.51 Type 2 diabetes mellitus with diabetic peripheral angiopathy without gangrene; E11.42 Type 2 diabetes mellitus with diabetic polyneuropathy; E78.5 Hyperlipidemia, unspecified; I67.1 Cerebral aneurysm, nonruptured; I70.1 Atherosclerosis of renal artery; I65.29 Occlusion and stenosis of unspecified carotid artery; E87.6 Hypokalemia; I11.0 Hypertensive heart disease with heart failure; Z66 Do not resuscitate; Z51.5 Encounter for palliative care; R41.0 Disorientation, unspecified; Z88.0 Allergy status to penicillin; Z88.2 Allergy status to sulfonamides; Z95.820 Peripheral vascular angioplasty status with implants and grafts; Z86.73 Personal history of transient ischemic attack (TIA), and cerebral infarction without residual deficits; Z90.49 Acquired absence of other specified parts of digestive tract; Z98.42 Cataract extraction status, left eye; Z98.41 Cataract extraction status, right eye; Z88.8 Allergy status to other drugs, medicaments and biological substances; Z91.040 Latex allergy status; Z87.891 Personal history of nicotine dependence; Z79.01 Long term (current) use of anticoagulants; Z82.49 Family history of ischemic heart disease and other diseases of the circulatory system; Z87.81 Personal history of (healed) traumatic fracture; Z99.81 Dependence on supplemental oxygen
CPT/HCPCS: 10047; 10078; 27000